=== PATIENT | female | born 1985 | race Hispanic/Latino ===

== ENCOUNTER 2017-12-18 10:22 | Emergency (ER) | payer OTHER ==
[2017-12-18 15:28] VITALS: PULSE 96; RESP 16; TEMP 98.6
--- NOTE | 2017-12-18 20:47 | OBHP ---
Datetime: 12/18/2017 11:25 IP Adm Impression: Term, intrauterine IP Admit Plan: Discharge home Admit Comment, IP Provider: 32 yo with IUP at 38 w, KAELYN 01/01/18 presented to [facility] with ctx, a t suggestion of her provider Dr. Humphrey. Pt states she has been having ctx over the past we ek, last night they were 5-6 min apart and lasting 40 seconds. Denies vaginal bleeding, denies loss o f fluid. Reports FM. ROS: denies chest pain, dyspnea, nausea, vomitting, urinary symptoms, leg edema PNC: Dr. 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 Plan: Discussed w/ Dr. Humphrey, pt for discharge w/ labor precautions. Pt seen/examined with Dr. Markus [email or web address] Attending Note: I saw the Patient at her bedside and agrees with the above. Extremities - PN: Normal Abdomen - PN: Normal Back - PN: Normal Lungs - PN: Normal Neurologic - PN: Normal HEENT - PN: Normal General - PN: Normal FHR - Baseline A Provider: 150 EGA AdmitDate IP: 38.0 Vital Signs Provider: Reviewed; Within Normal Limits IP Chief Complaint: Uterine contractions NICHD Variability Prov Fetus A: Moderate 6-25bpm NICHD Accel Fetus A IP Provider: 15X15 FHR Category Provider Fetus A: Category I Dilatation, Provider: 2 Effacement, Provider: 30 Station, Provider: -3 Genitourinary Exam: Normal
== END 2017-12-18 11:26 | disposition home or self-care (01) ==
LOC: H.EROB2 10:22 → H.L&D 10:34 → H.EROB2 11:26
DX: O47.1 False labor at or after 37 completed weeks of gestation (principal); Z3A.38 38 weeks gestation of pregnancy; O26.93 Pregnancy related conditions, unspecified, third trimester; R10.2 Pelvic and perineal pain

== ENCOUNTER 2017-12-24 07:34 | Inpatient (IN) | payer OTHER ==
[~2017-12-24 07:34] MED LIST: AMPicillin 2 GM in Sodium Chloride 0.9% 100 ML IVPB ONE
[2017-12-24] MEDS ORDERED: AMPicillin 2 GM in Sodium Chloride 0.9% 100 ML IVPB ONE (07:35)
[2017-12-24] MEDS ORDERED: Lidocaine 2% Inj (20ml) ONE (07:42)
[2017-12-24] MEDS ORDERED: Oxytocin 30 units/LR 500ML 30 U/500 ML BAG IV SCH (07:45)
[2017-12-24] MEDS ORDERED: Lactated Ringer's 1,000 ML IV SCH (07:45)
--- NOTE | 2017-12-24 08:07 | OBDS ---
MATERNAL INFORMATION Estimated Blood Loss (ml): 250 Maternal Complications: Precipitous Labor (<3hrs) Other Maternal Complications: + GBS Provider Comments: Pt came in FD with ROM clear fluid and trying to push and delivered a living baby girl cried spontaneously Peds called in for precipitous labor/delivery, 9/9, AF clear Placenta complete and intact Uterus contracted well No complications Tolerated procedure well. LABOR SUMMARY EDC: 01/01/2018 00:00 LABOR INFORMATION Reason for Induction: Not Applicable Group B Beta Strep: Positive Steroids Given: None Reason Steroids Not Administered: Not Applicable VAGINAL DELIVERY Episiotomy: None Laceration Extension: N/A Laceration Type: None Laceration Repair: Not Applicable Laceration Repair Note: small very superficial skin tear in introital area not bleeding and no repai r required Sponge Count Correct: Yes Sharps Count Correct: Yes Count Comment: count correct and verified by RN CSECTION DELIVERY Primary Indication: N/A Secondary Indication: N/A Labor: N/A CSection Incision: N/A
[2017-12-24] MEDS ORDERED: Oxycodone/Acetaminophen 5/325 mg Tab PO PRN ×2 (08:13→10:49)
--- NOTE | 2017-12-24 08:13 | OBADHP ---
Datetime: 12/24/2017 08:07 IP Chief Complaint Other: FD and trying to push Admit Comment, IP Provider: came in FD and ROM and trying to push Extremities - PN: Normal Abdomen - PN: Abnormal Breast - PN: Normal Lungs - PN: Normal Heart - PN: Normal Thyroid - PN: Normal Neurologic - PN: Normal HEENT - PN: Normal General - PN: Normal Presentation-Admit: Vertex Amniotic Fluid Color, Provider: Clear Membranes, Provider: Ruptured Comments, ACOG Physical Exam: Abd gravid term Fundus term Ext gen with mild varicosities on rt labia l area, ext no calf tenderness Gestation - Est Wks by US: 38+ IP Hx Assessment: The History has been Reviewed and is Current IP Chief Complaint: Uterine contractions; Suspected ruptured membranes; Other NICHD Variability Prov Fetus A: n/a Dilatation, Provider: FD Effacement, Provider: 100 Genitourinary Exam: Abnormal DTRs - PN: Normal EGA AdmitDate IP: 38.6 IP Adm Impression: Term, intrauterine ; Active labor; Ruptured Membranes IP Admit Plan: Admit to unit; Initiate labor protocol Datetime: 12/18/2017 11:25 Back - PN: Normal FHR - Baseline A Provider: 150 Vital Signs Provider: Reviewed; Within Normal Limits NICHD Accel Fetus A IP Provider: 15X15 FHR Category Provider Fetus A: Category I Station, Provider: -3
[2017-12-24 08:43] LABS: BASO % 0.4 % (0.0-2.0); EOS # 0.2 K/uL (0.0-0.7); EOS % 1.8 % (0.0-4.0); HEMOGLOBIN 14.7 g/dL (12.0-16.0); LYMPH # 3.3 K/uL (1.0-4.3); LYMPH % 31.2 % (20.0-40.0); MEAN CELL VOLUME 87.1 fl (81.0-99.0); MEAN CORPUSCULAR HEMOGLOBIN 28.9 pg (27.0-31.0); MEAN CORPUSCULAR HGB CONC 33.2 g/dL (33.0-37.0); MEAN PLATELET VOLUME 7.9 fl (7.2-11.7); MONO % 9.2 % (0.0-10.0); NEUT # 6.1 K/uL (1.8-7.0); NEUT % 57.4 % (50.0-75.0); NRBC % 0.1 % (0.0-0.0); RBC 5.07 Mil/uL (3.80-5.20); RED CELL DISTRIBUTION WIDTH 15.9 % (11.5-14.5); WHITE BLOOD COUNT 10.6 K/uL (4.8-10.8)
[2017-12-24] MEDS ORDERED: Ammonia 2% Inhalant ONE (10:05)
[2017-12-25 06:30] LABS: HEMOGLOBIN 13.9 g/dL (12.0-16.0); MEAN CELL VOLUME 86.5 fl (81.0-99.0); MEAN CORPUSCULAR HEMOGLOBIN 28.6 pg (27.0-31.0); MEAN CORPUSCULAR HGB CONC 33.1 g/dL (33.0-37.0); RBC 4.85 Mil/uL (3.80-5.20); RED CELL DISTRIBUTION WIDTH 15.8 % (11.5-14.5)
--- NOTE | 2017-12-26 09:48 | OBPPN ---
Datetime: 12/26/2017 09:44 PP Pain Prov: Within normal limits PP Pain Prov comment: No SOB, chest or leg pains PP Nausea Prov: Denies PP Flatus Prov: Yes PP Breasts Prov: Normal PP Lungs Prov: Normal PP Abdomen/Uterus Prov: Abnormal PP Lochia Prov: Normal PP Vulva/Perineum Prov: Abnormal PP CVA Tenderness Prov: Normal PP Extremities Prov: Normal PP C/S Incision Prov: Not Applicable PP Progress Prov: Normal PP Comments Phys Exam Prov: breast Not engorged, NT; Abd soft ND, fundus firm below the umb, NT; Per ineum repaired, Ext no edema or calf tenderness PP Impression Prov: Normal progression PP Plan Prov: Discharge PP Progress Note Prov: d/C home with instructions IP PP Procedures: None Vital Signs Provider PP: Reviewed
--- NOTE | 2017-12-26 09:50 | OBDCSUM ---
Datetime: 12/26/2017 09:47 Discharged to, Provider: Home Follow up at, Provider: Dr Humphrey Disch Instr Activity: Bedrest; May be up to bathroom; May be up for meals; May Shower Disch Instr Diet: Regular Discharge Instructions, Provider: Routine instructions given Discharge Diagnosis, Provider: Term Delivered Discharge Time: 12/26/2017 09:47 Follow up in weeks, Provider: 4-6 wks Disch Referrals: None Contraception discussed, Prov: Yes Disch Activity Restrictions: No exercising; No lifting; No driving; Minimize walking; Minimize stair -climbing; No sexual activity; Nothing in vagina - [place], tampons, douche Discharge Comment, Provider: instructions given Continue PN vit and iron Contraception after Delivery: Undecided
[2017-12-26 18:35] VITALS: BP 123/74; PULSE 67; RESP 18; TEMP 98; O2SAT 100
== END 2017-12-26 13:32 | disposition home or self-care (01) | DRG 373 ==
LOC: H.EROB2 07:34 → H.L&D 07:37 → H.OB/GYN 10:30
PROVIDERS: ADMIT Specialist; ATTEND Specialist
PROC: 10E0XZZ Delivery of Products of Conception, External Approach (ICD-10-PCS; principal; 2017-12-24)
PROC: 4A1HXCZ Monitoring of Products of Conception, Cardiac Rate, External Approach (ICD-10-PCS; 2017-12-24)
DX: O62.3 Precipitate labor (principal); Z37.0 Single live birth; Z3A.38 38 weeks gestation of pregnancy; O99.824 Streptococcus B carrier state complicating childbirth

== ENCOUNTER 2018-01-16 13:51 | Emergency (ER) | payer OTHER ==
[2018-01-16 13:58] VITALS: BP 136/81; PULSE 81; RESP 19; TEMP 98.5; O2SAT 98
--- NOTE | 2018-01-16 14:16 | ED PDOC ---
HPI: Female Pain Time Seen by Provider: 01/16/18 14:00 Chief Complaint (Nursing): Female Genitourinary Chief Complaint (Provider): Dysuria History Per: Patient History/Exam Limitations: no limitations Current Symptoms Are (Timing): Still Present Additional Complaint(s): 32 y/o female with no significant PMHx presenting for evaluation of dysuria x3 hours. Patient reports a persistent burning and pressure-like sensation in her vagina as well as dysuria. She also reports a temperature of 100 at home earlier today and some nausea. She denies any back pain, chest pain, abdominal pain, vomiting, vaginal bleeding, or hematuria. Patient states she is 3 weeks and had a vaginal delivery with no complications. Patient is currently breast feeding. PMD: Dr. Elder BAKERY ASSOCIATE: Dr. Humphrey Past Medical History Reviewed: Historical Data, Nursing Documentation, Vital Signs Vital Signs: Last Vital Signs Temp 98.5 F 01/16/18 13:55 Pulse 81 01/16/18 13:55 Resp 19 01/16/18 13:55 BP 136/81 01/16/18 13:55 Pulse Ox 98 01/16/18 13:55 - Medical History PMH: Anemia, Anxiety (hx anxiety attacks) - Surgical History Surgical History: No Surg Hx - Family History Family History: States: No Known Family Hx - Living Arrangements Living Arrangements: With Family - Social History Current smoker - smoking cessation education provided: No Alcohol: None Drugs: Denies - Home Medications Home Medications: Ambulatory Orders Medication Instructions Recorded [id number] [Precare 1 tab PO DAILY 04/08/15 ] Nitrofurantoin Macrocrystals 100 mg PO BID #14 cap 01/16/18 [Macrobid] - Allergies Allergies/Adverse Reactions: Allergies Allergy/AdvReac Type Severity Reaction Status Date / Time Sulfa (Sulfonamide Allergy REDNESS Verified 08/31/15 21:49 Antibiotics) Review of Systems ROS Statement: Except As Marked, All Systems Reviewed And Found Negative Constitutional: Positive for: Fever (T max 100 measures at home today) Cardiovascular: Negative for: Chest Pain Respiratory: Negative for: Cough Gastrointestinal: Positive for: Nausea. Negative for: Vomiting, Abdominal Pain Genitourinary Female: Positive for: Dysuria. Negative for: Hematuria, Vaginal Discharge, Vaginal Bleeding Musculoskeletal: Negative for: Back Pain Physical Exam - Reviewed Nursing Documentation Reviewed: Yes Vital Signs Reviewed: Yes - Physical Exam Appears: Positive for: Well, Non-toxic, No Acute Distress Skin: Positive for: Normal Color. Negative for: Rash Eye Exam: Positive for: Normal appearance Gastrointestinal/Abdominal: Positive for: Normal Exam, Soft. Negative for: Tenderness, Distended, Guarding, Rebound Back: Positive for: Normal Inspection. Negative for: L CVA Tenderness, R CVA Tenderness, Vertebral Tenderness Extremity: Positive for: Normal ROM Neurologic/Psych: Positive for: Alert, Oriented - Laboratory Results Urine dip results: Positive for: Leukocyte Esterase (moderate), Blood (moderate) , Nitrate (positive). Negative for: Ketones, Glucose, Bilirubin, Protein - ECG O2 Sat by Pulse Oximetry: 98 (RA) Pulse Ox Interpretation: Normal Medical Decision Making Medical Decision Makin:00 Impression: 32 y/o female with dysuria Plan: -Urine dip -Urine culture Patient will be discharged with Rx for Macrobid. Advised to follow up with [facility] ASSOCIATE in 2-3 days. Scribe Attestation: Documented by Christophe Foote, acting as a scribe for Heather Ang PA-C. Provider Scribe Attestation: All medical record entries made by the scribe were at my direction and personally dictated by me. I have reviewed the chart and agree that the record accurately reflects my personal performance of the history, physical exam, medical decision making, and the department course for this patient. I have also personally directed, reviewed, and agree with the discharge instructions and disposition. Disposition - Clinical Impression Clinical Impression: Urinary tract infection - Patient ED Disposition Is Patient to be Admitted: No Counseled Patient/Family Regarding: Studies Performed, Diagnosis, Need For Followup, Rx Given - Disposition Referrals: Wily Humphrey MD [Staff Provider] - Disposition: Routine/Home Disposition Time: 14:22 Condition: STABLE Additional Instructions: Take prescription meds as directed. Drink plenty of fluids. Take Tylenol or Advil for pain as needed. Follow-up with OB as scheduled tomorrow. Prescriptions: Nitrofurantoin Macrocrystals [Macrobid] 100 mg PO BID #14 cap Instructions: Urinary Tract Infections in Adults Forms: [facility] (Hungarian)
== END 2018-01-16 14:32 | disposition home or self-care (01) ==
LOC: H.ER 13:51
DX: N39.0 Urinary tract infection, site not specified (principal); F41.9 Anxiety disorder, unspecified